=== PATIENT | female | born 1970 ===

== ENCOUNTER 2017-10-06 08:25 | Emergency (ER) | payer MEDICAID ==
[2017-10-06 08:25] VITALS: BMI 28.3
[2017-10-06 08:36] VITALS: O2SAT 98
[2017-10-06] MEDS ORDERED: Sodium Chloride 0.9% 1,000 ML IV STA (09:17)
--- NOTE | 2017-10-06 09:19 | ED PDOC ---
HPI: Abdomen Time Seen by Provider: 10/06/17 09:13 Chief Complaint (Nursing): Abdominal Pain History Per: Patient Onset/Duration Of Symptoms: Days (2) Current Symptoms Are (Timing): Still Present Severity: Moderate Pain Scale Rating Of: 4 Location Of Pain/Discomfort: Epigastric Quality Of Discomfort: Sharp Associated Symptoms: Nausea, Vomiting, Diarrhea. denies: Fever, Back Pain Exacerbating Factors: None Alleviating Factors: None Additional Complaint(s): Sharp epigastric abd pain x 2 days assoc with NVD. No fever or bleeding Abnormal Vaginal Bleeding: No Past Medical History Vital Signs: Last Vital Signs Temp Pulse Resp BP Pulse Ox 98 10/06/17 09:19 - Medical History PMH: Asthma, HTN, Migraine - Family History Family History: States: Unknown Family Hx - Home Medications Home Medications: Ambulatory Orders Medication Instructions Recorded Ergocalciferol [Drisdol] 50,000 iu PO QWK 12/16/16 Losartan/Hydrochlorothiazide 1 each PO DAILY 12/16/16 [Losartan-Hctz 100-25 mg Tab] Silver Sulfadiazine 1% [Silver 1 unit TP BID #1 jar 12/16/16 Sulfadiazine] Topiramate [Topamax] 100 mg PO HS 12/16/16 traMADol [Ultram] 50 mg PO Q6H PRN #15 tab 12/16/16 Famotidine [Pepcid] 20 mg PO Q12 #20 tab 10/06/17 - Allergies Allergies/Adverse Reactions: Allergies Allergy/AdvReac Type Severity Reaction Status Date / Time No Known Allergies Allergy Verified 10/06/17 08:34 Review of Systems ROS Statement: Except As Marked, All Systems Reviewed And Found Negative Gastrointestinal: Positive for: Nausea, Vomiting, Abdominal Pain, Diarrhea Physical Exam - Reviewed Nursing Documentation Reviewed: Yes Vital Signs Reviewed: Yes - Physical Exam Appears: Positive for: Non-toxic, No Acute Distress Head Exam: Positive for: ATRAUMATIC, NORMAL INSPECTION, NORMOCEPHALIC Skin: Positive for: Normal Color, Warm, DRY Eye Exam: Positive for: EOMI, Normal appearance, PERRL ENT: Positive for: Normal ENT Inspection Neck: Positive for: Normal, Painless ROM Cardiovascular/Chest: Positive for: Regular Rate, Rhythm Respiratory: Positive for: CNT, Normal Breath Sounds Gastrointestinal/Abdominal: Positive for: Bowel Sounds, Soft, Tenderness ( epigastric) Back: Positive for: Normal Inspection Extremity: Positive for: Normal ROM Neurologic/Psych: Positive for: Alert, Oriented - Laboratory Results Result Diagrams: 10/06/17 10:22 10/06/17 10:22 - ECG O2 Sat by Pulse Oximetry: 98 Disposition - Clinical Impression Clinical Impression: Gastritis - Patient ED Disposition Is Patient to be Admitted: No Counseled Patient/Family Regarding: Studies Performed, Diagnosis, Need For Followup, Rx Given - Disposition Referrals: [facility] [Outside] Disposition: Routine/Home Disposition Time: 10:56 Condition: FAIR Prescriptions: Famotidine [Pepcid] 20 mg PO Q12 #20 tab Instructions: Gastritis (ED) Forms: [employer] (Citizen Of [place])
[2017-10-06 10:34] LABS: BASO % 0.1 % (0.0-2.0); EOS # 0.1 K/uL (0.0-0.7); EOS % 2.4 % (0.0-4.0); HEMATOCRIT 42.6 % (34.0-47.0); LYMPH # 0.5 K/uL (1.0-4.3); LYMPH % 8.7 % (20.0-40.0); MEAN CELL VOLUME 86.4 fl (81.0-99.0); MEAN CORPUSCULAR HEMOGLOBIN 28.5 pg (27.0-31.0); MEAN PLATELET VOLUME 8.2 fl (7.2-11.7); MONO # 0.3 K/uL (0.0-0.8); NEUT # 5.3 K/uL (1.8-7.0); NEUT % 83.8 % (50.0-75.0); NRBC % 0.2 % (0.0-0.0); PLATELET COUNT 270 K/uL (130-400); RED CELL DISTRIBUTION WIDTH 14.5 % (11.5-14.5); WHITE BLOOD COUNT 6.3 K/uL (4.8-10.8)
[2017-10-06 10:53] LABS: ALB/GLOB RATIO 1.3 (1.0-2.1); ALKALINE PHOSPHATASE 65 U/L (38-126); ALT/SGPT 36 U/L (9-52); AST/SGOT 25 U/L (14-36); BILIRUBIN,TOTAL 0.5 mg/dl (0.2-1.3); BLOOD UREA NITROGEN 17 mg/dl (7-17); CALCIUM 9.1 mg/dL (8.4-10.2); CARBON DIOXIDE 27 mmol/L (22-30); CHLORIDE 105 mmol/L (98-107); GFR AFRICAN-AMERICAN > 60; GLUCOSE,RANDOM 95 mg/dL (65-105); SODIUM 140 mmol/l (132-148); TOTAL PROTEIN 7.5 G/DL (6.3-8.2)
[2017-10-06 12:29] LABS: EOSINOPHIL 1 % (0-7); NEUTROPHIL 85 % (42-75); TOTAL CELLS COUNTED 100
== END 2017-10-06 11:19 | disposition home or self-care (01) ==
LOC: H.ER 08:25
DX: K29.70 Gastritis, unspecified, without bleeding (principal); I10 Essential (primary) hypertension; J45.909 Unspecified asthma, uncomplicated
CPT/HCPCS: 80053; 81025; 85025; 96374; 96375; 99283; J2405; J7040

== ENCOUNTER 2018-07-14 08:53 | Emergency (ER) | payer MEDICAID ==
[2018-07-14 08:53] VITALS: BMI 28.3
[2018-07-14 08:57] VITALS: BP 146/88; PULSE 87; RESP 18; TEMP 98.3; O2SAT 100
--- NOTE | 2018-07-14 10:15 | ED PDOC ---
HPI: Abdomen Time Seen by Provider: 07/14/18 09:14 Chief Complaint (Nursing): Abdominal Pain Chief Complaint (Provider): Abdominal pain History Per: Patient History/Exam Limitations: no limitations Additional Complaint(s): Pt reports vaginal bleeding since 06/26, associated with lower abdominal pain, radiates to back. Was evaluated by her Business Lawyer who ordered ultrasound but patient went on vacation. Denies fever, nausea, vomiting. Pt reports similar episode in past, dx with ovarian cyst, had cyst removed. Abnormal Vaginal Bleeding: Yes Past Medical History Reviewed: Nursing Documentation, Vital Signs Vital Signs: Last Vital Signs Temp 98.3 F 07/14/18 08:57 Pulse 87 07/14/18 08:57 Resp 18 07/14/18 08:57 BP 146/88 07/14/18 08:57 Pulse Ox 100 07/14/18 13:35 - Medical History PMH: Asthma, HTN, Migraine Denies: Kidney Stones, Chronic Kidney Disease - Surgical History Other surgeries: Tubal ligation, ovarian cystectomy - Family History Family History: States: Unknown Family Hx - Social History Current smoker - smoking cessation education provided: No Alcohol: None - Immunization History Hx Tetanus Toxoid Vaccination: No Hx Influenza Vaccination: No Hx Pneumococcal Vaccination: No - Home Medications Home Medications: Ambulatory Orders Medication Instructions Recorded Ergocalciferol [Drisdol] 50,000 iu PO QWK 12/16/16 Losartan/Hydrochlorothiazide 1 each PO DAILY 12/16/16 [Losartan-Hctz 100-25 mg Tab] Silver Sulfadiazine 1% [Silver 1 unit TP BID #1 jar 12/16/16 Sulfadiazine] Topiramate [Topamax] 100 mg PO HS 12/16/16 traMADol [Ultram] 50 mg PO Q6H PRN #15 tab 12/16/16 Cetirizine HCl [Zyrtec] 10 mg PO DAILY #10 capsule 10/06/17 Famotidine [Pepcid] 20 mg PO Q12 #20 tab 10/06/17 Naproxen [Naprosyn] 500 mg PO BID PRN #15 tablet 07/14/18 - Allergies Allergies/Adverse Reactions: Allergies Allergy/AdvReac Type Severity Reaction Status Date / Time No Known Allergies Allergy Verified 10/06/17 08:34 Review of Systems Constitutional: Negative for: Fever, Chills Cardiovascular: Negative for: Chest Pain Respiratory: Negative for: Cough, Shortness of Breath Gastrointestinal: Positive for: Abdominal Pain. Negative for: Nausea, Vomiting , Diarrhea Genitourinary Female: Positive for: Vaginal Bleeding, Pelvic Pain. Negative for : Dysuria, Vaginal Discharge Musculoskeletal: Positive for: Back Pain Skin: Negative for: Rash, Lesions Neurological: Negative for: Headache, Dizziness Physical Exam - Reviewed Nursing Documentation Reviewed: Yes Vital Signs Reviewed: Yes - Physical Exam Appears: Positive for: Well, No Acute Distress Head Exam: Positive for: ATRAUMATIC, NORMAL INSPECTION Skin: Positive for: Normal Color, Warm, Dry Eye Exam: Positive for: Normal appearance, EOMI, PERRL Cardiovascular/Chest: Positive for: Regular Rate, Rhythm Respiratory: Positive for: Normal Breath Sounds Gastrointestinal/Abdominal: Positive for: Bowel Sounds, Soft, Tenderness ( Suprapubic). Negative for: Guarding, Rebound Back: Positive for: Normal Inspection. Negative for: L CVA Tenderness, R CVA Tenderness Extremity: Positive for: Normal ROM Neurologic/Psych: Positive for: Alert, Oriented - Laboratory Results Result Diagrams: 07/14/18 10:15 07/14/18 10:15 - ECG O2 Sat by Pulse Oximetry: 100 Medical Decision Making Medical Decision Makin yo female with irregular vaginal bleeding and lower abdominal pain. - labs - pelvic ultrasound Accession No. : [id number] Patient Name / ID : MERRY FLEMING / [id number] Exam Date : 07/14/2018 11:25:53 ( Approved ) Study Comment : Sex / Age : F / 47Y Creator : Robby Loredo MD Dictator : Printing Press Machine Operator : Cafe Lead : Rboby Loredo MD Approver2 : Report Date : 07/14/2018 12:34:51 My Comment : Date of service: 07/14/2018 HISTORY: Suprapubic pain COMPARISON: Comparison made with prior study 08/26/2016 TECHNIQUE: Transabdominal/transvaginal sonographic evaluation of pelvis performed. FINDINGS: UTERUS: Measures 12.5 x 5.0 x 6.0 cm. The anteverted. Normal in size and appearance. No fibroid or other mass lesion seen. . Small nabothian cyst present measuring approximately 9.8 x 6.1 mm. ENDOMETRIUM: Measures 3.3 Mm in diameter. Unremarkable. CERVIX: No cervical abnormality identified. RIGHT OVARY: Measures 2.2 x 1.9 x 1.7. Cm. No solid mass. Normal flow. Small right ovarian cyst measuring approximately 1.7 x 1.0 x1 0.0 cm LEFT OVARY: Not visualized FREE FLUID: No significant free fluid noted. OTHER FINDINGS: None. IMPRESSION: Small right ovarian cyst as described. Small cervical nabothian cyst. Nonvisualization left ovary Disposition - Clinical Impression Clinical Impression: DUB (dysfunctional uterine bleeding) - Disposition Disposition: Routine/Home Disposition Time: 13:33 Condition: STABLE Additional Instructions: FOLLOW-UP WITH OB-STRETCHER HELPER WITHIN 2 DAYS FOR REEVALUATION. Prescriptions: Naproxen [Naprosyn] 500 mg PO BID PRN #15 tablet PRN Reason: Pain, Moderate (4-7) Instructions: Heavy Periods Forms: [facility] (Faroese)
[2018-07-14 10:44] LABS: BASO % 0.8 % (0.0-2.0); EOS # 0.1 K/uL (0.0-0.7); EOS % 1.4 % (0.0-4.0); HEMOGLOBIN 12.6 g/dL (12.0-16.0); LYMPH # 2.3 K/uL (1.0-4.3); LYMPH % 40.5 % (20.0-40.0); MEAN CELL VOLUME 83.4 fl (81.0-99.0); MEAN CORPUSCULAR HEMOGLOBIN 27.7 pg (27.0-31.0); MEAN CORPUSCULAR HGB CONC 33.2 g/dL (33.0-37.0); MEAN PLATELET VOLUME 8.1 fl (7.2-11.7); MONO # 0.5 K/uL (0.0-0.8); MONO % 8.6 % (0.0-10.0); NEUT # 2.8 K/uL (1.8-7.0); NEUT % 48.7 % (50.0-75.0); RBC 4.54 Mil/uL (3.80-5.20); RED CELL DISTRIBUTION WIDTH 14.6 % (11.5-14.5); WHITE BLOOD COUNT 5.8 K/uL (4.8-10.8)
[2018-07-14 10:46] LABS: SQUAMOUS EPITHIAL 19 /hpf (0-5); URINE BILIRUBIN NEGATIVE (NEGATIVE); URINE BLOOD MODERATE (NEGATIVE); URINE CLARITY TURBID (Clear); URINE COLOR RED (YELLOW); URINE GLUCOSE (UA) 50 mg/dL (Normal); URINE LEUKOCYTE ESTERASE NEG Leu/uL (Negative); URINE PROTEIN >=500 mg/dL (NEGATIVE); URINE UROBILINOGEN 0.2-1.0 mg/dL (0.2-1.0)
[2018-07-14 10:51] LABS: ALB/GLOB RATIO 1.4 (1.0-2.1); ALT/SGPT 32 U/L (9-52); AST/SGOT 26 U/L (14-36); BLOOD UREA NITROGEN 14 mg/dl (7-17); CALCIUM 9.7 mg/dL (8.4-10.2); GFR NON-AFRICAN AMERICAN > 60
[2018-07-14 10:53] LABS: PARTIAL THROMBOPLASTIN TIME 33.3 Seconds (25.6-37.1)
--- NOTE | 2018-07-14 12:36 | US ---
Date of service: 07/14/2018 HISTORY: Suprapubic pain COMPARISON: Comparison made with prior study 08/26/2016 TECHNIQUE: Transabdominal/transvaginal sonographic evaluation of pelvis performed. FINDINGS: UTERUS: Measures 12.5 x 5.0 x 6.0 cm. The anteverted. Normal in size and appearance. No fibroid or other mass lesion seen. . Small nabothian cyst present measuring approximately 9.8 x 6.1 mm. ENDOMETRIUM: Measures 3.3 Mm in diameter. Unremarkable. CERVIX: No cervical abnormality identified. RIGHT OVARY: Measures 2.2 x 1.9 x 1.7. Cm. No solid mass. Normal flow. Small right ovarian cyst measuring approximately 1.7 x 1.0 x1 0.0 cm LEFT OVARY: Not visualized FREE FLUID: No significant free fluid noted. OTHER FINDINGS: None. IMPRESSION: Small right ovarian cyst as described. Small cervical nabothian cyst. Nonvisualization left ovary
== END 2018-07-14 13:40 | disposition home or self-care (01) ==
LOC: H.ER 08:53
DX: N93.8 Other specified abnormal uterine and vaginal bleeding (principal); N83.201 Unspecified ovarian cyst, right side; N88.8 Other specified noninflammatory disorders of cervix uteri; I10 Essential (primary) hypertension